=== PATIENT | male | born 2005 | race American Indian/Alaskan Native ===

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

== ENCOUNTER 2024-08-10 21:05 | Emergency (ER) | payer OTHER ==
[~2024-08-10] VITALS: Ht 198.1 cm; Wt 145.4 kg
[~2024-08-10 21:05] MED LIST changes: +TAMIFLU75 MG PO
[2024-08-10] MEDS ORDERED: INDOMETHACIN50 MG PO (22:02)
[2024-08-10] MEDS ORDERED: INDOMETHACIN 25 MG CAP PO ONE (22:15)
[2024-08-10 22:21] VITALS: BP 146/86
== END 2024-08-10 22:23 | disposition home or self-care (01) ==
LOC: ED 21:05
DX: M25.571 Pain in right ankle and joints of right foot (principal); Z88.6 Allergy status to analgesic agent; W01.0XXA Fall on same level from slipping, tripping and stumbling without subsequent striking against object, initial encounter
CPT/HCPCS: 73610; 73630; 99283